=== PATIENT | female | born 1990 | race Caucasian/White ===

== ENCOUNTER 2021-02-13 06:16 | Day surgery (SDC) | payer OTHER ==
[2021-02-11 08:50] LABS: COVID AG,FIA SOURCE NASOPHARYNGEAL
[~2021-02-13] VITALS: Ht 149.9 cm; Wt 50.5 kg
[~2021-02-13 06:16] MED LIST: CYCLOPENTOLATE HCL 1% 2 ML OPHTHALMIC SOLUTION ONE; FLURBIPROFEN SODIUM 0.03% 2.5 ML OPHTHALMIC SOLUTION ONE; MOXIFLOXACIN HCL 0.5% 3 ML OPHTHALMIC SOLUTION ONE; PHENYLEPHRINE HCL 2.5% 2 ML OPHTHALMIC SOLUTION ONE; RINGERS SOLUTION,LACTATED 500 ML IV ONE; TROPICAMIDE 1% 2 ML OPHTHALMIC SOLUTION ONE
[2021-02-13] MEDS ORDERED: HYALURONATE SOD 8.5MG/0.85ML 10 MG/ML SYRINGE IO ONE (06:17)
[2021-02-13] MEDS ORDERED: FentaNYL CITRATE PF 100 MCG/2 ML VIAL IVP ONE (06:17)
[2021-02-13] MEDS ORDERED: MIDAZOLAM HCL 2 MG/2 ML VIAL IVP ONE (06:17)
[2021-02-13] MEDS ORDERED: PrednisoLONE ACETATE 1% 5 ML OPHTHALMIC SUSPENSION AD ONE (06:17)
[2021-02-13] MEDS ORDERED: CHONDR SULF A SOD/HYALURONATE 1.05 ML KIT IO ONE (06:17)
[2021-02-13] MEDS ORDERED: LIDOCAINE/PF 1% 2 ML VIAL CAUDAL ONE (06:17)
[2021-02-13] MEDS ORDERED: TETRACAINE HCL/PF 0.5% 4 ML OPHTHALMIC SOLUTION OD ONE (06:17)
[2021-02-13] MEDS ORDERED: EPINEPHrine 1:1,000 [1 MG/ML] AMP ET ONE (06:17)
[2021-02-13] MEDS ORDERED: BALANCED SALT 15 ML OPHTHALMIC IRRIG.SOLN IO ONE (06:17)
[2021-02-13] MEDS ORDERED: POVIDONE-IODINE 10% 15 ML SOLUTION UD TP ONE (06:17)
[2021-02-13] MEDS: TROPICAMIDE 1% 2 ML OPHTHALMIC SOLUTION OS SCH ×3 (07:01→07:14)
[2021-02-13] MEDS: FLURBIPROFEN SODIUM 0.03% 2.5 ML OPHTHALMIC SOLUTION OS SCH ×3 (07:02→07:14)
[2021-02-13] MEDS: PHENYLEPHRINE HCL 2.5% 2 ML OPHTHALMIC SOLUTION OS SCH ×3 (07:02→07:14)
[2021-02-13] MEDS: MOXIFLOXACIN HCL 0.5% 3 ML OPHTHALMIC SOLUTION OS SCH ×3 (07:02→07:14)
[2021-02-13] MEDS: CYCLOPENTOLATE HCL 1% 2 ML OPHTHALMIC SOLUTION OS SCH ×3 (07:02→07:14)
[2021-02-13] MEDS ORDERED: TETRACAINE HCL/PF 0.5% 4 ML OPHTHALMIC SOLUTION OS ONE (07:30)
== END 2021-02-13 11:40 | disposition home or self-care (01) ==
LOC: SURGERY 06:16
PROVIDERS: ATTEND Ophthalmology
DX: H25.12 Age-related nuclear cataract, left eye (principal); H40.059 Ocular hypertension, unspecified eye; Z79.899 Other long term (current) drug therapy
CPT/HCPCS: 65920; 66984; 84703; 87426; C9803; J0171; J2250; J3010; J3490; J7120; Q9967; V2632